=== PATIENT | male | born 1960 | race Caucasian/White ===

== ENCOUNTER 2022-07-27 14:33 | Inpatient (IN) | payer OTHER ==
[2022-07-27 14:54] VITALS: BMI 29.9
[2022-07-27] MEDS ORDERED: ACETAMINOPHEN 325 MG TABLET (FP) PO PRN ×2 (15:26→22:41)
[2022-07-27] MEDS ORDERED: guaiFENesin 600 MG TABLET.ER (FP) PO PRN (15:26)
[2022-07-27] MEDS ORDERED: MAG HYDROX/AL HYDROX/SIMETH 30 ML UNIT-DOSE CUP PO PRN (15:26)
[2022-07-27] MEDS ORDERED: BENZONATATE 200 MG CAPSULE PO PRN (15:26)
[2022-07-27] MEDS ORDERED: P-EPHED 60MG/TRIPROLIDI 2.5MG TABLET PO PRN (15:26)
[2022-07-27] MEDS ORDERED: BISMUTH SUBSALICYLATE 524 MG/30 ML PO PRN (15:26)
[2022-07-27] MEDS ORDERED: LOPERAMIDE HCL 2 MG CAPSULE PO PRN (15:26)
[2022-07-27] MEDS ORDERED: BENZOCAINE/MENTHOL (CHLORASEPTIC ) LOZENGE MM PRN (15:26)
[2022-07-27] MEDS ORDERED: IBUPROFEN 400 MG TABLET (FP) PO PRN (15:26)
[2022-07-27] MEDS ORDERED: IBUPROFEN 600 MG TABLET (FP) PO PRN (15:26)
[2022-07-27] MEDS ORDERED: POLYETHYLENE GLYCOL (HEALTHYLAX) 3350 17 GM PACKET PO PRN (15:26)
[2022-07-27] MEDS ORDERED: DICYCLOMINE HCL 10 MG CAPSULE PO PRN (15:26)
[2022-07-27] MEDS ORDERED: MAGNESIUM HYDROX 2400MG/30ML ORAL SUSPENSION 30 ML CUP PO PRN (15:26)
[2022-07-27] MEDS ORDERED: ONDANSETRON *ODT* 4 MG TABLET SL PRN (15:26)
[2022-07-27] MEDS ORDERED: chlordiazePOXIDE HCL 25 MG CAPSULE PO SCH (17:00)
[2022-07-27] MEDS ORDERED: chlordiazePOXIDE HCL 25 MG CAPSULE PO PRN (17:22)
[2022-07-27] MEDS ORDERED: ISOSORBIDE MONONITRATE 30 MG TAB.SR.24H (FP) PO SCH (17:30)
[2022-07-27] MEDS ORDERED: PATIENT'S OWN MEDICATION (NON-FORMULARY) (Empagliflozin [Jardiance] 10 MG Tablet) PO SCH (17:30)
[2022-07-27] MEDS ORDERED: ASPIRIN 81 MG CHEWABLE TABLETS PO SCH (17:30)
[2022-07-27] MEDS ORDERED: CLOPIDOGREL BISULFATE 75 MG TABLET (FP) PO SCH (17:30)
[2022-07-27] MEDS: ASPIRIN 81 MG CHEWABLE TABLETS PO SCH (19:14)
[2022-07-27] MEDS: PATIENT'S OWN MEDICATION (NON-FORMULARY) (Empagliflozin [Jardiance] 10 MG Tablet) PO SCH (19:15)
[2022-07-27] MEDS: chlordiazePOXIDE HCL 25 MG CAPSULE PO SCH ×2 (19:15→22:41)
[2022-07-27] MEDS: CLOPIDOGREL BISULFATE 75 MG TABLET (FP) PO SCH (19:49)
[2022-07-27] MEDS ORDERED: traZODone HCL 50 MG TABLET (FP) PO ONE (22:00)
[2022-07-27] MEDS: THIAMINE HCL 100 MG TABLET (FP) PO SCH (22:39)
[2022-07-27] MEDS: MELATONIN 5 MG TABLETS PO PRN (22:39)
[2022-07-27] MEDS: CARVEDILOL 6.25 MG TABLET (FP) PO SCH (22:41)
[2022-07-27] MEDS: ISOSORBIDE MONONITRATE 30 MG TAB.SR.24H (FP) PO SCH (23:38)
[2022-07-27] MEDS: SACUBITRIL/VALSARTAN 49 MG-51 MG TABLET PO SCH (23:38)
[2022-07-28] MEDS: chlordiazePOXIDE HCL 25 MG CAPSULE PO SCH ×4 (05:29→22:09)
[2022-07-28] MEDS: metFORMIN HCL 500 MG TABLET (FP) PO SCH (06:33)
[2022-07-28] MEDS: PANTOPRAZOLE 40 MG TABLET PO SCH (06:33)
[2022-07-28 10:10] LABS: HEMATOCRIT 34.6 % (35.4-49); HEMOGLOBIN 12.1 GM/dL (11.7-16.9); MCHC 34.9 g/dl (32.0-35.9); MEAN CELL VOLUME 91.7 fl (80-96); MEAN PLT VOLUME 9.6 fl (7.5-11.1); PLATELET COUNT 88 10^3/uL (134-434); RBC 3.77 M/mm3 (4.00-5.60); RDW 13.9 % (11.9-15.9); WHITE BLOOD COUNT 2.7 K/mm3 (4.0-10.0)
[2022-07-28 10:12] LABS: BLOOD UREA NITROGEN 15.3 mg/dL (7-18)
[2022-07-28 10:16] LABS: BILIRUBIN,TOTAL 0.9 mg/dL (0.2-1); CREATININE 0.8 mg/dL (0.55-1.3); TOT PROT 5.8 g/dl (6.4-8.2)
[2022-07-28] MEDS: METHOCARBAMOL 500 MG TABLET PO PRN ×2 (10:32→22:11)
[2022-07-28] MEDS: CARVEDILOL 6.25 MG TABLET (FP) PO SCH ×2 (10:32→22:09)
[2022-07-28] MEDS: ISOSORBIDE MONONITRATE 30 MG TAB.SR.24H (FP) PO SCH (10:32)
[2022-07-28] MEDS: PRENATAL VITAMINS W/ FOLIC ACID TABLET (FP) PO SCH (10:32)
[2022-07-28] MEDS: SACUBITRIL/VALSARTAN 49 MG-51 MG TABLET PO SCH ×2 (10:32→22:09)
[2022-07-28] MEDS: PATIENT'S OWN MEDICATION (NON-FORMULARY) (Empagliflozin [Jardiance] 10 MG Tablet) PO SCH (10:33)
[2022-07-28] MEDS: CLOPIDOGREL BISULFATE 75 MG TABLET (FP) PO SCH (10:33)
[2022-07-28] MEDS: ASPIRIN 81 MG CHEWABLE TABLETS PO SCH (10:33)
[2022-07-28] MEDS: LIDOCAINE 5% TOPICAL PATCH TP SCH (15:32)
[2022-07-28] MEDS ORDERED: ASPIRIN 81 MG CHEWABLE TABLETS PO SCH (19:00)
[2022-07-28] MEDS: THIAMINE HCL 100 MG TABLET (FP) PO SCH (22:09)
[2022-07-28] MEDS: LIDOCAINE PATCH REMOVAL MC SCH (22:09)
[2022-07-28] MEDS: traZODone HCL 50 MG TABLET (FP) PO SCH (22:09)
[2022-07-29] MEDS: chlordiazePOXIDE HCL 25 MG CAPSULE PO SCH ×4 (05:24→22:12)
[2022-07-29] MEDS: METHOCARBAMOL 500 MG TABLET PO PRN ×3 (05:26→17:31)
[2022-07-29] MEDS: PANTOPRAZOLE 40 MG TABLET PO SCH (06:15)
[2022-07-29] MEDS: metFORMIN HCL 500 MG TABLET (FP) PO SCH (06:15)
[2022-07-29] MEDS: PRENATAL VITAMINS W/ FOLIC ACID TABLET (FP) PO SCH (10:08)
[2022-07-29] MEDS: PATIENT'S OWN MEDICATION (NON-FORMULARY) (Empagliflozin [Jardiance] 10 MG Tablet) PO SCH (10:08)
[2022-07-29] MEDS: SACUBITRIL/VALSARTAN 49 MG-51 MG TABLET PO SCH ×2 (10:09→21:16)
[2022-07-29] MEDS: ASPIRIN 81 MG CHEWABLE TABLETS PO SCH (10:09)
[2022-07-29] MEDS: ISOSORBIDE MONONITRATE 30 MG TAB.SR.24H (FP) PO SCH (10:09)
[2022-07-29] MEDS: LIDOCAINE 5% TOPICAL PATCH TP SCH (10:09)
[2022-07-29] MEDS: CARVEDILOL 6.25 MG TABLET (FP) PO SCH ×2 (10:09→21:16)
[2022-07-29] MEDS: CLOPIDOGREL BISULFATE 75 MG TABLET (FP) PO SCH (10:09)
[2022-07-29] MEDS: traZODone HCL 50 MG TABLET (FP) PO SCH (21:16)
[2022-07-29] MEDS: THIAMINE HCL 100 MG TABLET (FP) PO SCH (21:16)
[2022-07-29] MEDS: MELATONIN 5 MG TABLETS PO PRN (21:18)
[2022-07-29] MEDS: LIDOCAINE PATCH REMOVAL MC SCH (22:12)
[2022-07-30] MEDS ORDERED: chlordiazePOXIDE HCL 10 MG CAPSULE PO PRN
[2022-07-30] MEDS: chlordiazePOXIDE HCL 10 MG CAPSULE PO SCH ×4 (05:23→22:09)
[2022-07-30] MEDS: metFORMIN HCL 500 MG TABLET (FP) PO SCH (06:10)
[2022-07-30] MEDS: PANTOPRAZOLE 40 MG TABLET PO SCH (06:10)
[2022-07-30] MEDS: PATIENT'S OWN MEDICATION (NON-FORMULARY) (Empagliflozin [Jardiance] 10 MG Tablet) PO SCH (10:15)
[2022-07-30] MEDS: PRENATAL VITAMINS W/ FOLIC ACID TABLET (FP) PO SCH (10:15)
[2022-07-30] MEDS: SACUBITRIL/VALSARTAN 49 MG-51 MG TABLET PO SCH ×2 (10:15→22:07)
[2022-07-30] MEDS: CLOPIDOGREL BISULFATE 75 MG TABLET (FP) PO SCH (10:16)
[2022-07-30] MEDS: ISOSORBIDE MONONITRATE 30 MG TAB.SR.24H (FP) PO SCH (10:16)
[2022-07-30] MEDS: ASPIRIN 81 MG CHEWABLE TABLETS PO SCH (10:16)
[2022-07-30] MEDS: CARVEDILOL 6.25 MG TABLET (FP) PO SCH ×2 (10:16→22:08)
[2022-07-30] MEDS: LIDOCAINE 5% TOPICAL PATCH TP SCH (10:17)
[2022-07-30] MEDS: METHOCARBAMOL 500 MG TABLET PO PRN (10:18)
[2022-07-30] MEDS: predniSONE 20 MG TABLET (UD) PO SCH (17:50)
[2022-07-30] MEDS ORDERED: NICOTINE 10 MG CARTRIDGE (INHALER) IH PRN (18:54)
[2022-07-30] MEDS: NICOTINE POLACRILEX 2 MG GUM BUC PRN (19:24)
[2022-07-30] MEDS: MELATONIN 5 MG TABLETS PO PRN (22:07)
[2022-07-30] MEDS: THIAMINE HCL 100 MG TABLET (FP) PO SCH (22:07)
[2022-07-30] MEDS: traZODone HCL 50 MG TABLET (FP) PO SCH (22:07)
[2022-07-30] MEDS: LIDOCAINE PATCH REMOVAL MC SCH (22:08)
[2022-07-31] MEDS: chlordiazePOXIDE HCL 10 MG CAPSULE PO SCH ×2 (05:21→17:35)
[2022-07-31] MEDS: metFORMIN HCL 500 MG TABLET (FP) PO SCH (06:07)
[2022-07-31] MEDS: PANTOPRAZOLE 40 MG TABLET PO SCH (06:07)
[2022-07-31] MEDS: ASPIRIN 81 MG CHEWABLE TABLETS PO SCH (10:04)
[2022-07-31] MEDS: CLOPIDOGREL BISULFATE 75 MG TABLET (FP) PO SCH (10:04)
[2022-07-31] MEDS: ISOSORBIDE MONONITRATE 30 MG TAB.SR.24H (FP) PO SCH (10:04)
[2022-07-31] MEDS: PRENATAL VITAMINS W/ FOLIC ACID TABLET (FP) PO SCH (10:04)
[2022-07-31] MEDS: CARVEDILOL 6.25 MG TABLET (FP) PO SCH ×2 (10:04→22:04)
[2022-07-31] MEDS: predniSONE 20 MG TABLET (UD) PO SCH (10:05)
[2022-07-31] MEDS: PATIENT'S OWN MEDICATION (NON-FORMULARY) (Empagliflozin [Jardiance] 10 MG Tablet) PO SCH (10:05)
[2022-07-31] MEDS: SACUBITRIL/VALSARTAN 49 MG-51 MG TABLET PO SCH ×2 (10:06→22:04)
[2022-07-31] MEDS: LIDOCAINE 5% TOPICAL PATCH TP SCH (10:07)
[2022-07-31] MEDS: hydrOXYzine PAMOATE 25 MG CAPSULE (FP) PO PRN (13:08)
[2022-07-31] MEDS: METHOCARBAMOL 500 MG TABLET PO PRN ×3 (13:08→22:07)
[2022-07-31] MEDS: NICOTINE POLACRILEX 2 MG GUM BUC PRN ×2 (14:33→19:18)
[2022-07-31] MEDS ORDERED: INSULIN (NOVOLOG) ASPART 100 UNITS/ML 10ML VIAL SQ ONE (17:07)
[2022-07-31] MEDS: THIAMINE HCL 100 MG TABLET (FP) PO SCH (22:04)
[2022-07-31] MEDS: LIDOCAINE PATCH REMOVAL MC SCH (22:05)
[2022-07-31] MEDS: traZODone HCL 50 MG TABLET (FP) PO SCH (22:05)
[2022-08-01] MEDS ORDERED: chlordiazePOXIDE HCL 10 MG CAPSULE PO ONE (05:00)
[2022-08-01] MEDS: metFORMIN HCL 500 MG TABLET (FP) PO SCH (07:23)
[2022-08-01] MEDS: PANTOPRAZOLE 40 MG TABLET PO SCH (07:23)
[2022-08-01 09:59] VITALS: BP 143/87; PULSE 80; RESP 19; TEMP 96.8
[2022-08-01] MEDS: PRENATAL VITAMINS W/ FOLIC ACID TABLET (FP) PO SCH (10:12)
[2022-08-01] MEDS: predniSONE 20 MG TABLET (UD) PO SCH (10:13)
[2022-08-01] MEDS: SACUBITRIL/VALSARTAN 49 MG-51 MG TABLET PO SCH (10:13)
[2022-08-01] MEDS: PATIENT'S OWN MEDICATION (NON-FORMULARY) (Empagliflozin [Jardiance] 10 MG Tablet) PO SCH (10:13)
[2022-08-01] MEDS: ASPIRIN 81 MG CHEWABLE TABLETS PO SCH (10:13)
[2022-08-01] MEDS: LIDOCAINE 5% TOPICAL PATCH TP SCH (10:13)
[2022-08-01] MEDS: ISOSORBIDE MONONITRATE 30 MG TAB.SR.24H (FP) PO SCH (10:13)
[2022-08-01] MEDS: CARVEDILOL 6.25 MG TABLET (FP) PO SCH (10:13)
[2022-08-01] MEDS: hydrOXYzine PAMOATE 25 MG CAPSULE (FP) PO PRN (10:15)
[2022-08-01] MEDS: CLOPIDOGREL BISULFATE 75 MG TABLET (FP) PO SCH (10:15)
== END 2022-08-01 10:49 | disposition home or self-care (01) | DRG 775 ==
LOC: YASAS 14:33 → Y3N 16:44
PROVIDERS: ADMIT Allergy & Immunology; ATTEND Surgery
PROC: HZ2ZZZZ Detoxification Services for Substance Abuse Treatment (ICD-10-PCS; principal; 2022-07-27)
DX: F10.230 Alcohol dependence with withdrawal, uncomplicated (principal); F17.210 Nicotine dependence, cigarettes, uncomplicated; D72.819 Decreased white blood cell count, unspecified; I25.10 Atherosclerotic heart disease of native coronary artery without angina pectoris; I11.0 Hypertensive heart disease with heart failure; I50.9 Heart failure, unspecified; Z95.5 Presence of coronary angioplasty implant and graft; E11.9 Type 2 diabetes mellitus without complications; Z79.84 Long term (current) use of oral hypoglycemic drugs; M54.50 Low back pain, unspecified; G89.29 Other chronic pain
CPT/HCPCS: 36415; 80053; 82962; 85027; 86780; 87811; C9803-CS; U0003; U0005